=== PATIENT | male | born 1960 | race Caucasian/White ===

== ENCOUNTER 2019-10-06 08:31 | Outpatient (CLI) | payer BC, SELFPAY ==
[2019-10-06 08:48] LABS: Basophils Percent Auto 0.3 % (0.2-1.2); Eosinophils Absolute Auto 0.1 K/mm3 (0-0.3); Eosinophils Percent Auto 1.5 % (0-4.4); Hematocrit 43.7 % (42.0-52.0); Hemoglobin 14.7 g/dL (14.0-18.0); Immature Granulocyte Absolute 0.03 K/mm3 (0.00-0.031); Immature Granulocyte Percent A 0.3 % (0-0.5); Lymphocytes Absolute Auto 1.97 K/mm3 (0.9-3.2); Lymphocytes Percent Auto 22.6 % (18.3-44.2); Mean Corpuscular HGB Conc 33.6 g/dl (32-36); Mean Corpuscular Hemoglobin 29.9 pg (26-34); Mean Corpuscular Volume 88.8 fl (80-100); Mean Platelet Volume 10.1 fl (7.4-10.4); Monocytes Absolute Auto 0.7 K/mm3 (0.1-0.6); Monocytes Percent Auto 8.5 % (2.6-8.5); Neutrophils Absolute Auto 5.8 K/mm3 (1.3-6.7); Neutrophils Percent Auto 66.8 % (45.5-73.1); Platelet Count Result 220 k/mm3 (150-375); Red Blood Count 4.92 M/mm3 (4.6-6.20); Red Cell Distribution Width 13.2 % (11.5-14.5); White Blood Count 8.7 K/mm3 (4.5-10.0)
== END 2019-10-06 08:32 | disposition home or self-care (01) ==
LOC: ANHLAB 08:35
PROVIDERS: PCP Internal Medicine; Visit Provider Internal Medicine Hematology & Oncology
DX: D69.59 Other secondary thrombocytopenia (principal)
CPT/HCPCS: 36415; 85025

== ENCOUNTER 2020-09-28 10:50 | Outpatient (CLI) | payer BC, SELFPAY ==
--- NOTE | ~2020-09-28 | XR_ITS ---
EXAMINATION: XR chest 2V 09/28/2020 11:06 INDICATION: Cough and shortness of breath PROCEDURE: 2 view chest COMPARISON: 11/11/2012 FINDINGS: The lungs are clear. The cardiomediastinal silhouette is within normal limits. There are no pleural effusions. There is no pneumothorax suspected. IMPRESSION: 1: NO ACUTE CARDIOPULMONARY DISEASE. Reviewed, dictated and finalized at location B.
== END 2020-09-28 10:51 | disposition home or self-care (01) ==
LOC: ANHIMG 10:56
PROVIDERS: PCP Internal Medicine; Visit Provider Internal Medicine
DX: R05 Cough (principal)
CPT/HCPCS: 71046

== ENCOUNTER → 2021-01-21 15:50 | Outpatient (CLI) | payer BC, SELFPAY ==
--- NOTE | ~2021-01-21 | CT_ITS ---
EXAMINATION: CT sinus wo con DATE: 01/21/2021 16:09 INDICATION: Chronic sinusitis. TECHNIQUE: Computed tomography (CT) of the paranasal sinuses was performed without intravenous contra st. Iterative reconstruction technique was employed. The dose-length product was 269.39 mGy-cm. COMPARISON: None FINDINGS: There is moderate mucosal thickening in the right frontal and ethmoid sinuses. There is mil d mucosal thickening in the sphenoid sinuses. The maxillary sinuses are clear. There are Adriana cells bilaterally. There is mild rightward deviation of the nasal septum. The ostiomeatal units are patent . IMPRESSION: 1. Mucosal thickening in the right frontal, right ethmoid, and sphenoid sinuses. Reviewed, dictated and finalized at location A. IMPRESSION: 1. Mucosal thickening in the right frontal, right ethmoid, and sphenoid sinuses .
== END ==
PROVIDERS: PCP Internal Medicine; Visit Provider Otolaryngology
DX: J32.8 Other chronic sinusitis (principal)
CPT/HCPCS: 70486

== ENCOUNTER 2022-01-30 09:55 | Outpatient (CLI) | payer BC, SELFPAY ==
[2022-01-30 10:16] LABS: Basophils Percent Auto 0.5 % (0.2-1.2); Eosinophils Absolute Auto 0.2 K/mm3 (0-0.3); Eosinophils Percent Auto 1.7 % (0-4.4); Hemoglobin 14.6 g/dL (14.0-18.0); Immature Granulocyte Absolute 0.01 K/mm3 (0.00-0.031); Immature Granulocyte Percent A 0.1 % (0-0.5); Lymphocytes Absolute Auto 2.09 K/mm3 (0.9-3.2); Lymphocytes Percent Auto 24.2 % (18.3-44.2); Mean Corpuscular Hemoglobin 30.4 pg (26-34); Mean Corpuscular Volume 89.6 fl (80-100); Mean Platelet Volume 9.7 fl (7.4-10.4); Monocytes Absolute Auto 0.8 K/mm3 (0.1-0.6); Monocytes Percent Auto 8.7 % (2.6-8.5); Neutrophils Absolute Auto 5.6 K/mm3 (1.3-6.7); Neutrophils Percent Auto 64.8 % (45.5-73.1); Platelet Count Result 216 k/mm3 (150-375); Red Cell Distribution Width 13.1 % (11.5-14.5); White Blood Count 8.6 K/mm3 (4.5-10.0)
[2022-01-30 10:22] LABS: Blood Urea Nitrogen 14 mg/dL (8-26); Carbon Dioxide 25 mmol/L (22-30); Chloride 101 mmol/L (98-109); Estimated Glomerular Filt Rate > 60; Glucose 101 mg/dL (70-105); Ionized Calcium (POC) 1.22 mmol/L (1.11-1.31); Potassium 4.1 mmol/L (3.5-4.9); Sodium 138 mmol/L (138-146)
[2022-01-30 11:03] LABS: Alanine Aminotransferase 29 U/L (6-50); Albumin Level 4.3 g/dL (3.5-5.1); Alkaline Phosphatase 98 U/L (38-126); Anion Gap 11 mmol/L (8-16); Aspartate Amino Transferase 30 U/L (17-59); Bilirubin,Total 0.6 mg/dL (0.2-1.3); Blood Urea Nitrogen 15 mg/dL (9-20); Calcium 8.8 mg/dL (8.4-10.2); Carbon Dioxide 25 mmol/L (22-30); Chloride 101 mmol/L (98-107); Estimated Glomerular Filt Rate > 60; Glucose 101 mg/dL (65-110); Potassium 4.1 mmol/L (3.4-5.0); Sodium 137 mmol/L (137-145)
[2022-01-30 12:04] LABS: Folic Acid 18.4 ng/mL (2.76->20)
[2022-01-30 12:24] LABS: Iron 72 ug/dL (49-181)
[2022-01-30 12:36] LABS: Percent Iron Saturation 19 % (20-50)
== END 2022-01-30 09:56 | disposition home or self-care (01) ==
LOC: ANHLAB 09:56
PROVIDERS: PCP Internal Medicine; Visit Provider Internal Medicine Hematology & Oncology
DX: D69.59 Other secondary thrombocytopenia (principal)
CPT/HCPCS: 36415; 80047; 80053; 82607; 82728; 82746; 83540; 83550; 85025

== ENCOUNTER 2022-04-08 15:43 | Emergency (ER) | payer BC, SELFPAY ==
[2022-04-08 16:42] VITALS: BP 135/67; PULSE 64; RESP 16; TEMP 36.8; O2SAT 100
[2022-04-08 16:53] VITALS: BP 127/89; PULSE 60; RESP 18; TEMP 37; O2SAT 100
--- NOTE | 2022-04-08 17:18 | ED.GENADULT ---
HPI - General Adult General Chief complaint: Upper Respiratory Infection Stated complaint: uri Time Seen by Provider: 04/08/22 17:18 Source: patient Mode of arrival: ambulatory Limitations: no limitations History of Present Illness HPI narrative: 61-year-old male patient presents to the [facility] with complaints of cold symptoms for the last 4-5 days. Patient states he has had some sinus drainage, runny nose, congestion and a slight cough. Patient does have history of asthma but denies any shortness of breath denies any really bad cough. Patient states his main complaint is just a lot of drainage. Denies any fevers, body aches or chills. Patient denies taking any kjcm-gmy-sdycxfs medications for his symptoms. Related Data Home Medications Medication Instructions Recorded Confirmed atorvastatin 10 mg tablet 10 mg DAILY 04/08/22 04/08/22 diltiazem HCl 240 mg 240 mg PO DAILY 04/08/22 04/08/22 capsule,extended release 24 hr escitalopram oxalate 20 mg tablet 20 mg PO DAILY 04/08/22 04/08/22 (Lexapro) levothyroxine 50 mcg tablet 50 mcg DAILY 04/08/22 04/08/22 lisinopril 10 mg tablet 10 mg PO DAILY 04/08/22 04/08/22 montelukast 10 mg tablet 10 mg DAILY 04/08/22 04/08/22 Allergies Allergy/AdvReac Type Severity Reaction Status Date / Time No Known Drug Allergies Allergy Unknown Verified 04/08/22 16:44 Review of Systems Review of Systems: CONSTITUTIONAL: Denies fever, chills, or sweats. EYES: Denies visual changes, redness, or discharge. ENT: Positive rhinorrhea, congestion, resolving sore throat, denies otalgia. CARDIOVASCULAR: Denies chest pain, palpitations, or edema. RESPIRATORY: Positive mild intermittent cough, denies dyspnea. GASTROINTESTINAL: Denies abdominal pain, nausea, vomiting, or diarrhea. GENITOURINARY: Denies dysuria or hematuria. SKIN: Denies rash or itching. MUSCULOSKELETAL: Denies back pain, joint pain, or myalgia. NEUROLOGIC: Denies headache, numbness, or weakness. PSYCHIATRIC: Denies anxiety or depression. [facility] Past Medical History Medical History Asthma Smalls palsy GERD (gastroesophageal reflux disease) Hypercholesteremia Hypertension Sleep apnea Surgical History Surgical History Hx of tonsillectomy Comments At the time of my signature I agree with nursing past medical history, surgical, social, and family history. There is no relevant family history pertinent to the presenting complaint. Exam Narrative: GENERAL: Well-appearing, well-nourished, and in no acute distress. HEAD: Normocephalic, atraumatic. EYES: PERRLA and EOMI. ENT: Nares with erythema edema noted bilateral, no rhinorrhea or epistaxis. Mucous membranes moist. Posterior pharynx with no erythema, tonsillar enlargement, exudates or lesions present. Bilateral TMs are clear no erythema from buys the canal. NECK: Supple. No lymphadenopathy CHEST: Clear to auscultation. No respiratory distress. HEART: Regular rate and rhythm. No murmur heard. Normal peripheral pulses. ABDOMEN: Soft, nontender, nondistended, normal active bowel sounds. EXTREMITIES: Normal range of motion. No edema. SKIN: Warm, dry, no rash. NEURO: No focal deficits. Alert and oriented x3. Course Course Level of Care: Express Care Visit Vital Signs Vital signs: Vital Signs Temperature 36.8 C 04/08/22 16:42 Pulse Rate 64 04/08/22 16:42 Respiratory Rate 16 04/08/22 16:42 Blood Pressure 135/67 04/08/22 16:42 Pulse Oximetry 100 04/08/22 16:42 Oxygen Delivery Room Air 04/08/22 16:42 Temperature 37.0 C 04/08/22 16:53 Pulse Rate 60 04/08/22 16:53 Respiratory Rate 18 04/08/22 16:53 Blood Pressure 127/89 04/08/22 16:53 Pulse Oximetry 100 04/08/22 16:53 Oxygen Delivery Room Air 04/08/22 16:53 Vital signs reviewed. Medical Decision Making MDM Narrative Medical decision making narrative: Discussed wit
== END 2022-04-08 17:34 | disposition home or self-care (01) ==
PROVIDERS: Emergency Provider Nurse Practitioner Family; PCP Internal Medicine
DX: J06.9 Acute upper respiratory infection, unspecified (principal); J45.909 Unspecified asthma, uncomplicated; K21.9 Gastro-esophageal reflux disease without esophagitis; E78.00 Pure hypercholesterolemia, unspecified; I10 Essential (primary) hypertension
CPT/HCPCS: 99211; G0463

== ENCOUNTER 2022-05-29 00:04 | Day surgery (SDC) | payer BC, SELFPAY ==
[2022-05-15 14:10] VITALS: BMI 43.4
--- NOTE | 2022-05-26 16:27 | PM.HPGS ---
History of Present Illness History of Present Illness Consent: Risks, benefits, and alternatives have been discussed and questions answered. Patient agrees to proceed with procedure. Chief complaint: neoplasm screening Narrative: Eliseo Flood is a 61 year old male Referred for colon cancer screening . He has a family history of colon cancer, his mother also he has had a polyp removed in the past. Review of Systems Review of Systems: All systems reviewed & are unremarkable except as noted in HPI and below PMFSH Past Medical History Medical History Anxiety Asthma Smalls palsy Depression GERD (gastroesophageal reflux disease) Hypercholesteremia Hypertension Morbid obesity with BMI of 40.0-44.9, adult Sleep apnea Surgical History Surgical History Hx of tonsillectomy Social History Social History Smoking status: Never smoker Alcohol intake: current Alcohol use details: social Substance use type: does not use Living arrangements: alone Spiritual care concerns: No Meds Home Medications and Allergies Home Medications Medication Instructions Recorded Confirmed Type atorvastatin 10 mg tablet 10 mg DAILY 04/08/22 05/15/22 History diltiazem HCl 240 mg 240 mg PO DAILY 04/08/22 05/15/22 History capsule,extended release 24 hr escitalopram oxalate 20 mg tablet 20 mg PO DAILY 04/08/22 05/15/22 History (Lexapro) levothyroxine 50 mcg tablet 50 mcg DAILY 04/08/22 05/15/22 History lisinopril 10 mg tablet 10 mg PO DAILY 04/08/22 05/15/22 History montelukast 10 mg tablet 10 mg DAILY 04/08/22 05/15/22 History aspirin 81 mg tablet 81 mg PO DAILY 05/15/22 05/15/22 History jkijecpn-owd-oldta acid 300 1 tablet PO DAILY 05/15/22 05/15/22 History mcg-lycopene 600 mcg-lutein 300 mcg tablet (Men 50 Plus Multivitamin) Allergies Allergy/AdvReac Type Severity Reaction Status Date / Time No Known Drug Allergies Allergy Unknown Verified 05/29/22 06:25 Exam Const: General: alert Orientation/consciousness: patient oriented x3 Resp: Auscultation: clear to auscultation bilaterally Cardio: Rhythm: regular rhythm GI: GI Palp: Yes Soft to palpation and No Tenderness to palpation present (GI) Neuro: General: patient oriented x3 Assessment and Plan Assessment and plan (1) Colon cancer screening: Code(s): Z12.11 - Encounter for screening for malignant neoplasm of colon Status: Acute Assessment and Plan: Colonoscopy with possible biopsy or polypectomy or cautery or injection of substances.
[2022-05-29 06:28] VITALS: BP 167/75; PULSE 73; RESP 20; TEMP 36.4; O2SAT 99
[2022-05-29] MEDS: LACTATED RINGERS 1,000 ML 150 ML IV CONT (06:43)
--- NOTE | 2022-05-29 07:00 | WPDANESEPPF ---
Anes - Initial Pre Proc Eval Procedure: Operation Date: 05/29/22 07:30 Proposed Procedures p Screening Colonoscopy - Phani Oconnor MD Date/Time: 05/29/22 07:00 Surgeon: Phani Oconnor MD Pre Op Diagnosis: neoplasm screening Patient Data Age: 61 Gender: M Height: 1.83 m Weight: 142.8 kg Last Vital Signs Temp 36.4 C L 05/29/22 06:28 Pulse 73 05/29/22 06:28 Resp 20 05/29/22 06:28 BP 167/75 H 05/29/22 06:28 Pulse Ox 99 05/29/22 06:28 O2 Del Method Room Air 05/29/22 06:28 Allergies Allergy/AdvReac Type Severity Reaction Status Date / Time No Known Drug Allergies Allergy Unknown Verified 05/29/22 06:25 Home Medications Medication Instructions Recorded Confirmed Type atorvastatin 10 mg tablet 10 mg DAILY 04/08/22 05/15/22 History diltiazem HCl 240 mg 240 mg PO DAILY 04/08/22 05/15/22 History capsule,extended release 24 hr escitalopram oxalate 20 mg tablet 20 mg PO DAILY 04/08/22 05/15/22 History (Lexapro) levothyroxine 50 mcg tablet 50 mcg DAILY 04/08/22 05/15/22 History lisinopril 10 mg tablet 10 mg PO DAILY 04/08/22 05/15/22 History montelukast 10 mg tablet 10 mg DAILY 04/08/22 05/15/22 History aspirin 81 mg tablet 81 mg PO DAILY 05/15/22 05/15/22 History doqjntvy-nem-guigm acid 300 1 tablet PO DAILY 05/15/22 05/15/22 History mcg-lycopene 600 mcg-lutein 300 mcg tablet (Men 50 Plus Multivitamin) Patient hx anesthesia problems: none Family hx anesthesia problems: none Results Review: All pre-operative results and documents have been reviewed as part of the pre-operative evaluation. [facility] Past Medical History Medical History (Updated 05/29/22 @ 07:00 by Marlon Brock MD) Anxiety Asthma Smalls palsy Depression GERD (gastroesophageal reflux disease) Hypercholesteremia Hypertension Morbid obesity with BMI of 40.0-44.9, adult Sleep apnea Surgical History Surgical History Hx of tonsillectomy Social History Social History Smoking status: Never smoker Alcohol intake: current Alcohol use details: social Substance use type: does not use Living arrangements: alone Spiritual care concerns: No Anes - Eval Final PreProcedure Day of Procedure 05/29/22 07:00 Patient weight: morbidly obese Heart: regular rate and rhythm Lungs: clear to auscultation and normal air movement Airway: Mallampati scale class II Neurological: alert and oriented Last oral intake: >/= 8 hours ASA classification: III Emergent: no Anesthetic plan: proceed Anesthesia type and monitoring: general GIVS Results Review: All pre-operative results and documents have been reviewed as part of the pre-operative evaluation. Informed Consent: The patient's anesthetic plan and its attendant risks and benefits were discussed with the patient/family/POA. Questions were solicited and answers provided to the satisfaction of the patient/family/POA.
[2022-05-29 07:51] VITALS: BP 107/56; PULSE 70; RESP 21; O2SAT 98
[2022-05-29 08:01] VITALS: BP 108/61; PULSE 75; RESP 20; O2SAT 98
[2022-05-29 08:11] VITALS: BP 128/66; PULSE 70; RESP 20; O2SAT 100
== END 2022-05-29 08:16 | disposition home or self-care (01) ==
PROVIDERS: PCP Internal Medicine; Visit Provider Internal Medicine Gastroenterology
PROC: 0DJD8ZZ Inspection of Lower Intestinal Tract, Via Natural or Artificial Opening Endoscopic (ICD-10-PCS; CPT 45378; principal; 2022-05-29 07:30)
DX: Z12.11 Encounter for screening for malignant neoplasm of colon (principal); K64.8 Other hemorrhoids; Z86.010 Personal history of colon polyps; Z80.0 Family history of malignant neoplasm of digestive organs; I10 Essential (primary) hypertension; J45.909 Unspecified asthma, uncomplicated; E78.00 Pure hypercholesterolemia, unspecified; G47.30 Sleep apnea, unspecified; F32.A Depression, unspecified; F41.9 Anxiety disorder, unspecified; E66.01 Morbid (severe) obesity due to excess calories; Z68.41 Body mass index [BMI] 40.0-44.9, adult; Z79.82 Long term (current) use of aspirin
CPT/HCPCS: 45378; J2704; J7120

== ENCOUNTER 2023-04-17 10:05 | Emergency (ER) | payer BC, SELFPAY ==
[2023-04-17 10:19] VITALS: BP 136/67; PULSE 73; RESP 20; TEMP 36.7; O2SAT 99
--- NOTE | 2023-04-17 10:36 | ED.URI ---
HPI - URI/Sore Throat General Chief Complaint: Upper Respiratory Infection Stated Complaint: Sinus Infection, Cough Time Seen by Provider: 04/17/23 10:36 History of Present Illness HPI Narrative: 62-year-old male presented for complaint of sinus congestion and pressure, along with a productive cough worsening over the past few days. Patient had COVID 2 weeks ago, states his URI symptoms improved for few days until they returned worse. Taking mucinex without relief. Denies sob, wheezing, n/v/d/f/c. Related Data Home Medications Medication Instructions Recorded Confirmed atorvastatin 10 mg tablet 10 mg DAILY 04/08/22 04/17/23 diltiazem HCl 240 mg 240 mg PO DAILY 04/08/22 04/17/23 capsule,extended release 24 hr escitalopram oxalate 20 mg tablet 20 mg PO DAILY 04/08/22 04/17/23 (Lexapro) levothyroxine 50 mcg tablet 50 mcg DAILY 04/08/22 04/17/23 lisinopril 10 mg tablet 10 mg PO DAILY 04/08/22 04/17/23 montelukast 10 mg tablet 10 mg DAILY 04/08/22 04/17/23 aspirin 81 mg tablet 81 mg PO DAILY 05/15/22 04/17/23 wyypjmgz-fc-zjiqu 300 mcg-K 60 1 tablet PO DAILY 05/15/22 04/17/23 mcg-lycop 600 mcg-lutein 300 mcg tablet (Men 50 Plus Multivitamin) omeprazole 20 mg capsule,delayed 20 mg PO DAILY 04/17/23 04/17/23 release Allergies Allergy/AdvReac Type Severity Reaction Status Date / Time No Known Drug Allergies Allergy Unknown Verified 04/17/23 10:24 Review of Systems Review of Systems: CONSTITUTIONAL: Denies body aches, fever, chills, or sweats. EYES: Denies visual changes, redness, or discharge. ENT: reports rhinorrhea, congestion, Denies otalgia. CARDIOVASCULAR: Denies chest pain, palpitations, or edema. RESPIRATORY: reports cough Denies dyspnea. GASTROINTESTINAL: Denies abdominal pain, nausea, vomiting, or diarrhea. SKIN: Denies rash, itching, or wounds. MUSCULOSKELETAL: Denies back pain, joint pain, or myalgia. NEUROLOGIC: Denies headache PMFSH Past Medical History Medical History Anxiety Asthma Smalls palsy Depression GERD (gastroesophageal reflux disease) Hypercholesteremia Hypertension Morbid obesity with BMI of 40.0-44.9, adult Sleep apnea Surgical History Surgical History Hx of tonsillectomy Social History Social History Smoking status: Never smoker Alcohol intake: current Alcohol use details: social Substance use type: does not use Living arrangements: alone Spiritual care concerns: No Exam Narrative: GENERAL: mildly Ill-appearing, no acute distress. EYES: conjunctivae clear ENT: Mucous membranes moist. Nasal congestion. TMs pearly monroy with normal light reflex bilaterally; no tragal tenderness. Oropharynx erythematous without lesions. No drooling, no hoarseness, no trismus, uvula midline. No tripod positioning, hot potato voice, or soft palate swelling. NECK: Supple. No lymphadenopathy CHEST: Clear to auscultation, breath sounds equal. No respiratory distress, speaks in full sentences. HEART: Regular rate and rhythm. No murmur heard. SKIN: Warm, dry, no rash. NEURO: Alert and oriented x3. Course Course Emergency Course: Patient is aware of diagnosis, understands and agrees to treatment plan. Anticipatory guidance given. Patient agrees to follow-up as directed and is aware of reasons to seek care at the emergency department. Portions of this record may have been created with voice recognition software Level of Care: Express Care Visit Vital Signs Vital signs: Vital Signs Temperature 98.0 F 04/17/23 10:19 Pulse Rate 73 04/17/23 10:19 Respiratory Rate 20 04/17/23 10:19 Blood Pressure 136/67 04/17/23 10:19 Pulse Oximetry 99 04/17/23 10:19 Oxygen Delivery Room Air 04/17/23 10:19 Temperature 98.0 F 04/17/23 10:19 Pulse Rate 73 04/17/23 10:19 Respirator
--- NOTE | 2023-04-20 16:19 | ED.URI ---
HPI - URI/Sore Throat General Chief Complaint: Upper Respiratory Infection Stated Complaint: Sinus Infection, Cough Time Seen by Provider: 04/17/23 10:36 Source: patient, RN notes reviewed and old records reviewed Mode of arrival: ambulatory Limitations: no limitations History of Present Illness HPI Narrative: 62-year-old male returns to the [facility] with continued cough, congestion. Currently on Augmentin, benzonatate and a Medrol Dosepak. Related Data Home Medications Medication Instructions Recorded Confirmed atorvastatin 10 mg tablet 10 mg DAILY 04/08/22 04/20/23 diltiazem HCl 240 mg 240 mg PO DAILY 04/08/22 04/20/23 capsule,extended release 24 hr escitalopram oxalate 20 mg tablet 20 mg PO DAILY 04/08/22 04/20/23 (Lexapro) levothyroxine 50 mcg tablet 50 mcg DAILY 04/08/22 04/20/23 lisinopril 10 mg tablet 10 mg PO DAILY 04/08/22 04/20/23 montelukast 10 mg tablet 10 mg DAILY 04/08/22 04/20/23 aspirin 81 mg tablet 81 mg PO DAILY 05/15/22 04/20/23 zusqcqlq-xw-xmflj 300 mcg-K 60 1 tablet PO DAILY 05/15/22 04/20/23 mcg-lycop 600 mcg-lutein 300 mcg tablet (Men 50 Plus Multivitamin) omeprazole 20 mg capsule,delayed 20 mg PO DAILY 04/17/23 04/20/23 release Allergies Allergy/AdvReac Type Severity Reaction Status Date / Time No Known Drug Allergies Allergy Unknown Verified 04/20/23 16:18 Review of Systems Review of Systems: All systems reviewed & are unremarkable except as noted in HPI and below Constitutional: Constitutional: Reports no additional constitutional complaints Eyes: Eyes: Reports no additional eye complaints ENT: Reports system reviewed and no additional complaints, except as documented Cardiovascular: Cardiovascular: Reports no additional cardiovascular complaints, Denies chest pain and Denies dyspnea Respiratory: Respiratory: Reports no additional respiratory complaints, Denies chest congestion, Denies cough and Denies dyspnea Gastrointestinal: Gastrointestinal: Reports no additional gastrointestinal complaints, Denies abdominal pain, Denies nausea and Denies vomiting Musculoskeletal: Musculoskeletal: Reports no additional musculoskeletal complaints Integumentary/Breasts: Skin/Breast: Reports system reviewed and no additional complaints, except as docu Neurologic: Reports system reviewed and no additional complaints, except as documented Psychiatric: Psychiatric: Reports no additional psychiatric complaints Allergic/Immunologic: Allergic/Immunologic: Reports no additional allergic/immunologic complaints PMF Past Medical History Medical History Anxiety Asthma Smalls palsy Depression GERD (gastroesophageal reflux disease) Hypercholesteremia Hypertension Morbid obesity with BMI of 40.0-44.9, adult Sleep apnea Surgical History Surgical History Hx of tonsillectomy Social History Social History Smoking status: Never smoker Alcohol intake: current Alcohol use details: social Substance use type: does not use Living arrangements: alone Spiritual care concerns: No Comments At the time of my signature, I reviewed and agree with the nursing past medical, surgical, social, and family history. There is no relevant family history pertinent to the patient complaint. Exam Const: General: cooperative, healthy appearing, comfortable, no acute distress, well developed, alert and well nourished Nutritional Appearance: well nourished Orientation/consciousness: patient oriented x3 Limitations: no limitations HENMT: Head: normal to inspection Ears: hearing grossly normal bilaterally and external ears normal Face/Nose/Sinus: Normal external nose present, Normal nares present, Normal nasal mucous membranes and turbinates present, normal facial exam and face symmetric Face and sinus: normal facial exam and face sym
== END 2023-04-17 10:46 | disposition home or self-care (01) ==
PROVIDERS: Emergency Provider Nurse Practitioner Family; PCP Internal Medicine
DX: J06.9 Acute upper respiratory infection, unspecified (principal); I10 Essential (primary) hypertension; J45.909 Unspecified asthma, uncomplicated; F41.9 Anxiety disorder, unspecified; F32.A Depression, unspecified; Z79.899 Other long term (current) drug therapy; Z79.82 Long term (current) use of aspirin
CPT/HCPCS: 99213; G0463

== ENCOUNTER 2023-04-20 16:17 | Emergency (ER) | payer BC, SELFPAY ==
[2023-04-20 16:26] VITALS: BP 152/72; PULSE 69; RESP 20; TEMP 36.8; O2SAT 98
--- NOTE | 2023-04-20 16:33 | ED.URI ---
HPI - URI/Sore Throat General Chief Complaint: Upper Respiratory Infection Stated Complaint: Cough and Drainage Time Seen by Provider: 04/20/23 16:25 Source: patient, RN notes reviewed and old records reviewed Mode of arrival: ambulatory Limitations: no limitations History of Present Illness HPI Narrative: 62-year-old male presents to the [facility] with continued cough, drainage. Had been diagnosed with COVID end of March. Was here on the , was prescribed antibiotics, steroid and cough medication. Patient states that he is not better so he returned Reports that the sinus symptoms are doing better but the cough continues Related Data Home Medications Medication Instructions Recorded Confirmed atorvastatin 10 mg tablet 10 mg DAILY 04/08/22 04/20/23 diltiazem HCl 240 mg 240 mg PO DAILY 04/08/22 04/20/23 capsule,extended release 24 hr escitalopram oxalate 20 mg tablet 20 mg PO DAILY 04/08/22 04/20/23 (Lexapro) levothyroxine 50 mcg tablet 50 mcg DAILY 04/08/22 04/20/23 lisinopril 10 mg tablet 10 mg PO DAILY 04/08/22 04/20/23 montelukast 10 mg tablet 10 mg DAILY 04/08/22 04/20/23 aspirin 81 mg tablet 81 mg PO DAILY 05/15/22 04/20/23 yyymuosk-qv-leuyv 300 mcg-K 60 1 tablet PO DAILY 05/15/22 04/20/23 mcg-lycop 600 mcg-lutein 300 mcg tablet (Men 50 Plus Multivitamin) omeprazole 20 mg capsule,delayed 20 mg PO DAILY 04/17/23 04/20/23 release Allergies Allergy/AdvReac Type Severity Reaction Status Date / Time No Known Drug Allergies Allergy Unknown Verified 04/20/23 16:18 Review of Systems Review of Systems: All systems reviewed & are unremarkable except as noted in HPI and below Constitutional: Constitutional: Reports no additional constitutional complaints Eyes: Eyes: Reports no additional eye complaints ENT: Reports as per HPI Cardiovascular: Cardiovascular: Reports no additional cardiovascular complaints, Denies chest pain and Denies dyspnea Respiratory: Respiratory: Reports as per HPI, Denies chest congestion, Reports cough and Denies dyspnea Gastrointestinal: Gastrointestinal: Reports no additional gastrointestinal complaints, Denies abdominal pain, Denies nausea and Denies vomiting Musculoskeletal: Musculoskeletal: Reports no additional musculoskeletal complaints Integumentary/Breasts: Skin/Breast: Reports system reviewed and no additional complaints, except as docu Neurologic: Reports system reviewed and no additional complaints, except as documented Psychiatric: Psychiatric: Reports no additional psychiatric complaints Allergic/Immunologic: Allergic/Immunologic: Reports no additional allergic/immunologic complaints PMFSH Past Medical History Medical History Anxiety Asthma Smalls palsy Depression GERD (gastroesophageal reflux disease) Hypercholesteremia Hypertension Morbid obesity with BMI of 40.0-44.9, adult Sleep apnea Surgical History Surgical History Hx of tonsillectomy Social History Social History Smoking status: Never smoker Alcohol intake: current Alcohol use details: social Substance use type: does not use Living arrangements: alone Spiritual care concerns: No Comments At the time of my signature, I reviewed and agree with the nursing past medical, surgical, social, and family history. There is no relevant family history pertinent to the patient complaint. Exam Const: General: cooperative, healthy appearing, comfortable, no acute distress, well developed, alert and well nourished Nutritional Appearance: well nourished and obese Orientation/consciousness: patient oriented x3 Limitations: no limitations HENMT: Head: normal to inspection Ears: hearing grossly normal bilaterally, external ears normal, TM's normal bilaterally, EAC's normal, mastoids normal and no periauricular adenopathy Fa
== END 2023-04-20 16:37 | disposition home or self-care (01) ==
PROVIDERS: Emergency Provider Nurse Practitioner; PCP Internal Medicine
DX: J40 Bronchitis, not specified as acute or chronic (principal); I10 Essential (primary) hypertension; Z79.899 Other long term (current) drug therapy; Z79.82 Long term (current) use of aspirin
CPT/HCPCS: 99211; G0463